=== PATIENT | female | born 1930 | race Two or more races ===

== ENCOUNTER 2018-05-05 10:30 | Outpatient (CLI) | payer OTHER ==
[~2018-05-05 10:30] MED LIST: ANTIVERT25 M1 PO; INTESTINEX1 CAP PO; TOPROL XL50 MG; VYTORIN 10-20 M1 TAB
== END 2018-05-05 17:00 | disposition home or self-care (01) ==
LOC: RAD 10:30
DX: I10 Essential (primary) hypertension (principal)

== ENCOUNTER 2018-05-05 11:43 | Outpatient (CLI) | payer OTHER | END 2018-05-05 11:44 | disposition home or self-care (01) | LOC: LAB 11:43 | DX: I10 Essential (primary) hypertension (principal) ==

== ENCOUNTER 2018-07-31 11:37 | Outpatient (CLI) | payer OTHER | END 2018-07-31 17:00 | disposition home or self-care (01) | LOC: RAD 11:37 | DX: J15.7 Pneumonia due to Mycoplasma pneumoniae (principal) ==